=== PATIENT | female | born 1945 | race Two or more races ===

== ENCOUNTER 2022-05-14 14:57 | Inpatient (IN) | payer MEDICAID, OTHER ==
[~2022-05-14] VITALS: Ht 152.4 cm; Wt 31.8 kg
[2022-05-14] MEDS ORDERED: ACETAMINOPHEN 500 MG TAB PO ONE (16:00)
[2022-05-14 16:56] LABS: Basophils # (auto) 0 10 ^3/uL (0-0.2); Basophils % (auto) 0.1 % (0.0-2.0); Eosinophils # (auto) 0 10 ^3/uL (0-0.8); Eosinophils % (auto) 0.1 % (0.0-7.0); Hematocrit 42.7 % (36.0-46.0); Hemoglobin 13.8 g/dL (12.2-16.2); Lymphocytes # (auto) 0.5 10 ^3/uL (0.4-5.4); Lymphocytes % (auto) 4.5 % (10.0-50.0); Mean Corpuscular Hemoglobin 29.2 pg (28.0-32.0); Mean Corpuscular Hgb Conc. 32.2 g/dL (32.0-36.0); Mean Corpuscular Volume 90.6 fL (80.0-100.0); Monocytes # (auto) 0.6 10 ^3/uL (0-1.3); Monocytes % (auto) 5.3 % (0.0-12.0); Neutrophils # (auto) 9.5 10 ^3/uL (1.6-8.6); Red Blood Cells 4.71 10^6/uL (4.0-5.20); Red Cell Distribution Width 12.6 % (11.8-14.3); White Blood Cell 10.6 10^3/uL (4.4-10.8)
[2022-05-14 17:10] LABS: Albumin 1.9 g/dL (3.4-5.0); Calcium 7.5 mg/dL (8.5-10.1); Magnesium 1.9 mg/dL (1.6-2.6); Potassium 4.1 mmol/L (3.5-5.1)
[2022-05-14 17:13] LABS: BUN/Creatinine Ratio 28.6; Bilirubin, Total 0.2 mg/dL (0.2-1.0); Total Protein 5.2 g/dL (6.4-8.2)
[2022-05-14 18:04] LABS: Urine Bacteria FEW /hpf (None Seen); Urine Blood Negative /uL (Negative); Urine Mucus FEW (None Seen); Urine Specific Gravity 1.027 (1.001-1.035); Urine WBC 2 /hpf (0 - 5)
[2022-05-14] MEDS ORDERED: MORPHINE SULFATE 4 MG/ML SYR/VIAL IM ONE (19:15)
[2022-05-14] MEDS ORDERED: PIPERACILLIN-TAZOB 3.375GM 100 ML IV ONE (21:30)
[2022-05-14] MEDS ORDERED: SODIUM CHLORIDE 0.9% 1,000 ML IV ONE (21:30)
[2022-05-14] MEDS ORDERED: ONDANSETRON HCL 4 MG/2 ML VIAL IV PRN (21:45)
[2022-05-14] MEDS ORDERED: ACETAMINOPHEN 325 MG TAB PO PRN ×2 (21:45→22:30)
[2022-05-14] MEDS ORDERED: DOCUSATE SOD 100 MG CAP PO PRN (21:45)
[2022-05-14] MEDS ORDERED: HYDROcodone-ACET 5/325MG TAB PO PRN (21:45)
[2022-05-14] MEDS ORDERED: AZITHROMYCIN 500MG/ 250ML 250 ML IV ONE (21:45)
[2022-05-14] MEDS: metroNIDAZOLE 500MG/100ML 100 ML IV SCH (22:00)
[2022-05-14] MEDS ORDERED: FAMOTIDINE (10MG/ML) 2ML VL IV SCH (22:00)
[2022-05-14] MEDS ORDERED: MORPHINE SULFATE INJ 2 MG/ml SYRG IV PRN (22:30)
[2022-05-14] MEDS ORDERED: NITROGLYCERIN 0.4 MG SL TAB SL PRN (22:30)
[2022-05-14] MEDS: ALBUMIN 25% 100 ML IV SCH (23:27)
[2022-05-15] MEDS: SODIUM CHLORIDE 0.9% 1,000 ML IV SCH ×2 (00:12→14:25)
[2022-05-15] MEDS: FAMOTIDINE (10MG/ML) 2ML VL IV SCH ×2 (00:17→21:18)
[2022-05-15] MEDS: ALBUMIN 25% 100 ML IV SCH ×2 (05:45→14:08)
[2022-05-15 07:00] LABS: Basophils # (auto) 0 10 ^3/uL (0-0.2); Basophils % (auto) 0.2 % (0.0-2.0); Eosinophils # (auto) 0 10 ^3/uL (0-0.8); Eosinophils % (auto) 0.6 % (0.0-7.0); Hemoglobin 12.4 g/dL (12.2-16.2); Lymphocytes # (auto) 0.5 10 ^3/uL (0.4-5.4); Mean Corpuscular Hemoglobin 29.7 pg (28.0-32.0); Mean Corpuscular Hgb Conc. 32.7 g/dL (32.0-36.0); Monocytes # (auto) 0.6 10 ^3/uL (0-1.3); Monocytes % (auto) 8.4 % (0.0-12.0); Neutrophils # (auto) 5.6 10 ^3/uL (1.6-8.6); Neutrophils % (auto) 82.8 % (37.0-80.0); Red Blood Cells 4.17 10^6/uL (4.0-5.20); Red Cell Distribution Width 12.9 % (11.8-14.3); White Blood Cell 6.8 10^3/uL (4.4-10.8)
[2022-05-15 07:11] LABS: Calcium 6.9 mg/dL (8.5-10.1); Potassium 3.5 mmol/L (3.5-5.1)
[2022-05-15 07:14] LABS: Bilirubin, Total 0.2 mg/dL (0.2-1.0); Total Protein 4.7 g/dL (6.4-8.2)
[2022-05-15] MEDS: metroNIDAZOLE 500MG/100ML 100 ML IV SCH ×3 (08:09→21:18)
[2022-05-15] MEDS: ENOXAPARIN SOD 30 MG/0.3 ML SYRINGE SC SCH (10:25)
[2022-05-15] MEDS: AZITHROMYCIN 500MG/ 250ML 250 ML IV SCH (10:45)
[2022-05-15 12:57] VITALS: BP 100/51
[2022-05-15 13:00] VITALS: BP 106/63
[2022-05-15] MEDS: CEFTRIAXONE SODIUM 2 GM in D5W 5% 50 ML IV SCH (13:02)
[2022-05-15 17:19] VITALS: BP 106/44
[2022-05-15 22:00] VITALS: BP 108/52
[2022-05-16] MEDS: metroNIDAZOLE 500MG/100ML 100 ML IV SCH (05:18)
[2022-05-16] MEDS: SODIUM CHLORIDE 0.9% 1,000 ML IV SCH (07:05)
[2022-05-16 09:00] VITALS: BP 99/49
[2022-05-16] MEDS: CEFTRIAXONE SODIUM 2 GM in D5W 5% 50 ML IV SCH (10:15)
[2022-05-16] MEDS: ENOXAPARIN SOD 30 MG/0.3 ML SYRINGE SC SCH (10:15)
[2022-05-16] MEDS: AZITHROMYCIN 500MG/ 250ML 250 ML IV SCH (11:45)
[2022-05-16] MEDS ORDERED: CEPH-322 PO (12:49)
[2022-05-16 13:11] VITALS: BP_SYST 105; BP_SYST 112; BP_DIAS 43; BP_DIAS 52
[2022-05-16 14:23] VITALS: BP 98/49
== END 2022-05-16 15:11 | disposition home or self-care (01) | DRG 244 ==
LOC: EDBD → ER 15:00 → OVERFLOW 22:26 → EAST 05-15 10:12
PROVIDERS: ADMIT Nurse Practitioner Family; ATTEND Nurse Practitioner Family
DX: K57.32 Diverticulitis of large intestine without perforation or abscess without bleeding (principal); J18.9 Pneumonia, unspecified organism; E87.1 Hypo-osmolality and hyponatremia; E88.09 Other disorders of plasma-protein metabolism, not elsewhere classified; K52.9 Noninfective gastroenteritis and colitis, unspecified; Z20.822 Contact with and (suspected) exposure to COVID-19; Z88.8 Allergy status to other drugs, medicaments and biological substances
CPT/HCPCS: 36415; 74176; 80053; 81001; 83605; 83735; 84484; 85025; 87040; 87426; 96365; 96367; G0378; J0696; J2543; J3490; J7060; P9047

== ENCOUNTER 2022-06-18 13:11 | Inpatient (IN) | payer MEDICAID ==
[~2022-06-18] VITALS: Ht 152.4 cm; Wt 53.0 kg
[2022-06-18] VITALS (10 sets, daily range): BP systolic 83–123; BP diastolic 38–58
[~2022-06-18 13:11] MED LIST: CEPH-322 PO
[2022-06-18 13:54] LABS: Basophils # (auto) 0 10 ^3/uL (0-0.2); Basophils % (auto) 0.2 % (0.0-2.0); Eosinophils # (auto) 0 10 ^3/uL (0-0.8); Eosinophils % (auto) 0.1 % (0.0-7.0); Lymphocytes # (auto) 0.3 10 ^3/uL (0.4-5.4); Monocytes # (auto) 0.6 10 ^3/uL (0-1.3); Neutrophils # (auto) 2.8 10 ^3/uL (1.6-8.6); Nucleated Red Blood Cells % 0.1 %
[2022-06-18 13:55] LABS: Hematocrit 41.4 % (36.0-46.0); Hemoglobin 13.4 g/dL (12.2-16.2); Lymphocytes % (auto) 9.3 % (10.0-50.0); Mean Corpuscular Hemoglobin 28.8 pg (28.0-32.0); Mean Corpuscular Hgb Conc. 32.4 g/dL (32.0-36.0); Mean Corpuscular Volume 88.9 fL (80.0-100.0); Monocytes % (auto) 15.5 % (0.0-12.0); Neutrophils % (auto) 74.9 % (37.0-80.0); Red Blood Cells 4.66 10^6/uL (4.0-5.20); White Blood Cell 3.8 10^3/uL (4.4-10.8)
[2022-06-18 14:04] LABS: Calcium 7.3 mg/dL (8.5-10.1); Potassium 4.4 mmol/L (3.5-5.1)
[2022-06-18 14:07] LABS: BUN/Creatinine Ratio 53.6; Bilirubin, Total 0.6 mg/dL (0.2-1.0); Total Protein 4.9 g/dL (6.4-8.2)
[2022-06-18] MEDS ORDERED: ONDANSETRON HCL 4 MG/2 ML VIAL IV ONE (14:15)
[2022-06-18] MEDS ORDERED: IOHEXOL 300 MG/ML 100ML BOTTLE IJ ONE (14:54)
[2022-06-18 16:27] LABS: Urine Bacteria NONE SEEN /hpf (None Seen); Urine Blood Negative /uL (Negative); Urine WBC 1 /hpf (0 - 5)
[2022-06-18] MEDS ORDERED: cefTRIAXone 1GM/50ML D5W 50 ML IV ONE (17:00)
[2022-06-18] MEDS ORDERED: metroNIDAZOLE 500MG/100ML 100 ML IV ONE (17:00)
[2022-06-18] MEDS ORDERED: SODIUM CHLORIDE 0.9% 1,000 ML IV ONE (17:00)
[2022-06-18] MEDS ORDERED: VANCOMYCIN 1GM/250ML 250 ML IV ONE (17:00)
[2022-06-18 17:44] LABS: INR 1.21 (0.9-1.15); Partial Thromboplastin Time 35.8 sec (24.6-33.4)
[2022-06-18] MEDS ORDERED: ROCURONIUM 10MG/ML 10ML VIAL IV ONE (18:04)
[2022-06-18] MEDS ORDERED: GLYCOPYRROLATE 0.2 MG/ML 1ML VIAL ONE (18:13)
[2022-06-18] MEDS ORDERED: fentaNYL CITRATE 100 MCG/2 ML VL ONE ×2 (18:13→21:27)
[2022-06-18] MEDS ORDERED: LIDOCAINE 2% (LOCAL ANESTH.) PF 5ml SDV ONE (18:13)
[2022-06-18] MEDS ORDERED: KETAMINE HCL 10 ML ONE (18:13)
[2022-06-18] MEDS ORDERED: MIDAZOLAM HCL 2MG/2ML 2ml VIAL (1mg/ml) ONE (18:13)
[2022-06-18] MEDS ORDERED: HYDROCORTISONE SOD SUCC 100 MG/2ML INJ VIAL ONE (18:13)
[2022-06-18] MEDS ORDERED: ETOMIDATE (2MG/ML) 20ML VIAL IV ONE (18:13)
[2022-06-18] MEDS ORDERED: CALCIUM CHLOR(10%) 100MG/ML 10ML SYRINGE IV ONE (19:31)
[2022-06-18] MEDS ORDERED: NOREPINEPHRINE 8 MG/250ML KIT 250 ML IV ONE (19:31)
[2022-06-18] MEDS ORDERED: HYDROmorphone HCL 2 MG/ML VL/or syr ONE (19:45)
[2022-06-18] MEDS ORDERED: fentaNYL Drip 2500mCg/250mlNS 250 ML IV SCH (22:15)
[2022-06-18] MEDS ORDERED: MIDAZOLAM DRIP 50 mg/50mL 50 ML IV SCH (22:15)
[2022-06-18] MEDS: NOREPINEPHRINE 8 MG/250ML KIT 250 ML IV SCH (22:45)
[2022-06-18] MEDS: PANTOPRAZOLE 40 MG/10 ML VIAL INJ IV SCH (22:53)
[2022-06-18 23:18] LABS: Basophils # (auto) 0 10 ^3/uL (0-0.2); Basophils % (auto) 0.3 % (0.0-2.0); Eosinophils # (auto) 0 10 ^3/uL (0-0.8); Eosinophils % (auto) 0.2 % (0.0-7.0); Hematocrit 30.6 % (36.0-46.0); Hemoglobin 9.7 g/dL (12.2-16.2); Lymphocytes # (auto) 0.3 10 ^3/uL (0.4-5.4); Lymphocytes % (auto) 12.9 % (10.0-50.0); Mean Corpuscular Hemoglobin 28.4 pg (28.0-32.0); Mean Corpuscular Hgb Conc. 31.8 g/dL (32.0-36.0); Mean Corpuscular Volume 89.3 fL (80.0-100.0); Monocytes # (auto) 0.2 10 ^3/uL (0-1.3); Monocytes % (auto) 8.5 % (0.0-12.0); Neutrophils # (auto) 1.7 10 ^3/uL (1.6-8.6); Neutrophils % (auto) 78.1 % (37.0-80.0); Nucleated Red Blood Cells % 0.8 %; Red Blood Cells 3.43 10^6/uL (4.0-5.20); Red Cell Distribution Width 13.7 % (11.8-14.3); White Blood Cell 2.1 10^3/uL (4.4-10.8)
[2022-06-18] MEDS ORDERED: POTASSIUM CHLORIDE 20 MEQ in D5W/LACTATED RINGERS 1,000 ML IV SCH (23:30)
[2022-06-18] MEDS ORDERED: HYDROmorphone HCL 2 MG/ML VL/or syr IV PRN (23:30)
[2022-06-18 23:33] LABS: INR 1.87 (0.9-1.15); Partial Thromboplastin Time 47.3 sec (24.6-33.4)
[2022-06-18 23:38] LABS: Alanine Aminotransferase 8 U/L (13-56); Anion Gap 7 (5-15); Aspartate Aminotransferase 22 U/L (15-37); Blood Urea Nitrogen 11 mg/dL (7-18); Calcium 6.2 mg/dL (8.5-10.1); Carbon Dioxide 23 mmol/L (21-32); Chloride 102 mmol/L (98-107); Glucose 137 mg/dL (74-106); Potassium 3.8 mmol/L (3.5-5.1); Sodium 132 mmol/L (136-145)
[2022-06-18 23:41] LABS: Alkaline Phosphatase 61 U/L (45-117); Bilirubin, Total 0.7 mg/dL (0.2-1.0); Total Protein 2.4 g/dL (6.4-8.2)
[2022-06-18 23:51] LABS: BUN/Creatinine Ratio 73.3; GFR African American 616 mL/min; GFR Non-African American 509 mL/min
[2022-06-18 23:53] LABS: Albumin 0.9 g/dL (3.4-5.0)
[2022-06-19] VITALS (66 sets, daily range): BP systolic 0–134; BP diastolic 0–69
[2022-06-19] MEDS ORDERED: MAGNESIUM SULFATE 1GM/100ML 100 ML IV ONE (00:32)
[2022-06-19] MEDS: MAGNESIUM SULFATE 1GM/100ML 100 ML IV SCH ×3 (01:30→05:11)
[2022-06-19] MEDS: ALBUMIN 25% 100 ML IV SCH ×3 (01:30→07:30)
[2022-06-19] MEDS: NOREPINEPHRINE 8 MG/250ML KIT 250 ML IV SCH ×2 (05:02→14:20)
[2022-06-19 05:11] LABS: Hematocrit 13.6 % (36.0-46.0); Mean Corpuscular Hemoglobin 29.6 pg (28.0-32.0); Mean Corpuscular Hgb Conc. 33.4 g/dL (32.0-36.0); Mean Corpuscular Volume 88.7 fL (80.0-100.0); Red Blood Cells 1.54 10^6/uL (4.0-5.20); Red Cell Distribution Width 13.8 % (11.8-14.3); White Blood Cell 3.2 10^3/uL (4.4-10.8)
[2022-06-19 05:25] LABS: BUN/Creatinine Ratio 42.9; Calcium 6.1 mg/dL (8.5-10.1); Potassium 4.1 mmol/L (3.5-5.1)
[2022-06-19 05:39] LABS: Albumin 2.1 g/dL (3.4-5.0); Bilirubin, Total 0.8 mg/dL (0.2-1.0); Total Protein 2.7 g/dL (6.4-8.2)
[2022-06-19 05:40] LABS: Hemoglobin 4.6 g/dL (12.2-16.2)
[2022-06-19 05:49] LABS: Basophils % (manual) 0 (0.0-2.0); Blast Cells 0; Eosinophils % (manual) 0 (0-7); Monocytes % (manual) 0 (0-12); Promyelocytes % 0; Reactive Lymphocytes 0
[2022-06-19] MEDS ORDERED: PHENYLEPHRINE IV 250 ML IV ONE ×2 (06:27→15:29)
[2022-06-19] MEDS ORDERED: KETAMINE HCL 10 ML ONE (07:54)
[2022-06-19 07:55] LABS: Band Neutrophils % (manual) 30; Lymphocytes % (manual) 4 (10.0-50.0); Metamyelocytes % 1; Myelocytes % 1
[2022-06-19] MEDS ORDERED: PHENYLEPHRINE HCL 10 MG/ML VL ONE (07:55)
[2022-06-19] MEDS ORDERED: ROCURONIUM 10MG/ML 10ML VIAL IV ONE (07:55)
[2022-06-19] MEDS ORDERED: CALCIUM CHL 100MG/ML 1,000 MG in D5W 5% 100 ML IV ONE (08:30)
[2022-06-19] MEDS ORDERED: POVIDONE IODINE 10 % TOPICAL OINT 30GM TOP ONE (08:40)
[2022-06-19] MEDS ORDERED: MIDAZOLAM HCL 2MG/2ML 2ml VIAL (1mg/ml) ONE (08:59)
[2022-06-19] MEDS ORDERED: NOREPINEPHRINE 8 MG/250ML KIT 250 ML IV ONE (09:49)
[2022-06-19] MEDS ORDERED: levoFLOXacin 500MG 100 ML IV SCH (10:00)
[2022-06-19] MEDS: PANTOPRAZOLE 40 MG/10 ML VIAL INJ IV SCH (10:00)
[2022-06-19 10:07] LABS: Magnesium 2.4 mg/dL (1.6-2.6); Phosphorus 3.1 mg/dL (2.5-4.90)
[2022-06-19] MEDS ORDERED: CALCIUM GLUC 1,000mg/50ml-NS 50 ML IV ONE (12:30)
[2022-06-19] MEDS ORDERED: VASOPRESSIN 50 UNITS in D5W 5% 247.5 ML IV SCH (12:45)
[2022-06-19] MEDS ORDERED: TPN PER PHARMACY 0 ML IV SCH (14:30)
[2022-06-19 15:34] LABS: INR 2.79 (0.9-1.15); Partial Thromboplastin Time > 139.0 sec (24.6-33.4)
[2022-06-19] MEDS ORDERED: VANCOMYCIN PER PHARMACY 0 MG IV SCH (15:45)
[2022-06-19] MEDS ORDERED: MEROPENEM 1GM IVPB 100 ML IV ONE (16:00)
[2022-06-19] MEDS ORDERED: PHENYLEPHRINE IV 250 ML IV SCH (16:00)
[2022-06-19] MEDS ORDERED: VANCOMYCIN 1GM/250ML 250 ML IV SCH (17:00)
[2022-06-19] MEDS ORDERED: AMINO ACID INFUSION IN D10W 1,000 ML IV NR (20:00)
[2022-06-20] MEDS ORDERED: ACCU-CHEK COMFORT CURVE STRIP VI SCH
[2022-06-20] MEDS ORDERED: DEXTROSE (50%) 50ML SYRG IV SCH
[2022-06-20] MEDS ORDERED: InsuLIN REG 1unit/0.01ml Soln (100units/ml) SC SCH
[2022-06-20] MEDS ORDERED: MEROPENEM 1GM IVPB 100 ML IV SCH (04:00)
== END 2022-06-19 23:02 | DRG 220 ==
LOC: ER 13:19 → EDBD 21:38 → ICU WEST 21:38
PROVIDERS: ADMIT Nurse Practitioner Family; ATTEND Nurse Practitioner Family
PROC: 0DB90ZZ Excision of Duodenum, Open Approach (ICD-10-PCS; 2022-06-18)
PROC: 0FC48ZZ Extirpation of Matter from Gallbladder, Via Natural or Artificial Opening Endoscopic (ICD-10-PCS; 2022-06-18)
PROC: 0DQB0ZZ Repair Ileum, Open Approach (ICD-10-PCS; 2022-06-18)
PROC: 0DQ90ZZ Repair Duodenum, Open Approach (ICD-10-PCS; 2022-06-18)
PROC: 0FT40ZZ Resection of Gallbladder, Open Approach (ICD-10-PCS; principal; 2022-06-18 18:47)
PROC: 05HB33Z Insertion of Infusion Device into Right Basilic Vein, Percutaneous Approach (ICD-10-PCS; 2022-06-19)
PROC: 30233N1 Transfusion of Nonautologous Red Blood Cells into Peripheral Vein, Percutaneous Approach (ICD-10-PCS; 2022-06-19)
PROC: 0D9680Z Drainage of Stomach with Drainage Device, Via Natural or Artificial Opening Endoscopic (ICD-10-PCS; 2022-06-19)
DX: K55.9 Vascular disorder of intestine, unspecified (principal); J96.01 Acute respiratory failure with hypoxia; R57.1 Hypovolemic shock; E46 Unspecified protein-calorie malnutrition; K56.3 Gallstone ileus; K82.3 Fistula of gallbladder; K50.90 Crohn's disease, unspecified, without complications; E87.1 Hypo-osmolality and hyponatremia; K57.92 Diverticulitis of intestine, part unspecified, without perforation or abscess without bleeding; E83.51 Hypocalcemia; K80.20 Calculus of gallbladder without cholecystitis without obstruction; Z90.3 Acquired absence of stomach [part of]; F17.200 Nicotine dependence, unspecified, uncomplicated; Z51.5 Encounter for palliative care; Z68.22 Body mass index [BMI] 22.0-22.9, adult; Z88.0 Allergy status to penicillin
CPT/HCPCS: 36415; 36600; 71045; 74177; 80053; 81001; 82805; 83605; 83690; 83735; 84100; 84484; 85007; 85025; 85027; 85610; 85730; 86850; 86900; 86901; 86920; 87081; 93005; 94002; 94003; 96361; 96365; 96368; 96375; 99291; C9113; G0378; J0696; J2001; J2250; J2405; J3490; J7060; P9047